=== PATIENT | female | born 1985 | race Caucasian/White ===

== ENCOUNTER 2024-09-08 13:17 | Emergency (ER) | payer BC ==
[~2024-09-08] VITALS: Ht 170.2 cm; Wt 96.6 kg
[2024-09-08 14:00] VITALS: PULSE 80; RESP 18; TEMP 98.8; O2SAT 98
[2024-09-08] MEDS ORDERED: MECLIZINE HCL25 MG PEG (14:33)
[2024-09-08] MEDS: METOCLOPRAMIDE HCL 10 MG/2ML VIAL IV ONE (14:34)
[2024-09-08] MEDS ORDERED: MECLIZINE HCL25 MG PO (14:34)
[2024-09-08] MEDS: KETOROLAC TROMETHAMINE 30 MG/ML VIAL IV STA (14:35)
[2024-09-08] MEDS: DIPHENHYDRAMINE HCL INJ 50 MG/ML VIAL IV ONE (14:35)
[2024-09-08] MEDS: MECLIZINE HCL 12.5 MG TAB PO ONE (14:35)
== END 2024-09-08 14:49 | disposition home or self-care (01) ==
LOC: FSED 14:01
DX: R42 Dizziness and giddiness (principal); R11.0 Nausea
CPT/HCPCS: 81003; 81025; 99284; J1200; J1885; J2765; J8597